=== PATIENT | female | born 1990 | race Caucasian/White ===

== ENCOUNTER 2023-02-24 14:08 | Emergency (ER) | payer OTHER ==
[2023-02-24] MEDS ORDERED: Acetaminophen 500 MG TAB ONE (14:41)
[2023-02-24] MEDS ORDERED: Ibuprofen 800 MG TAB ONE (14:41)
== END 2023-02-24 15:57 | disposition home or self-care (01) ==
LOC: ERS 14:08
DX: M25.512 Pain in left shoulder (principal); M54.6 Pain in thoracic spine; E03.9 Hypothyroidism, unspecified; E66.9 Obesity, unspecified
CPT/HCPCS: 72072